=== PATIENT | female | born 1950 | race Caucasian/White ===

== ENCOUNTER 2016-04-16 09:10 | Observation (INO) | payer BC, MEDICARE ==
[2016-04-16] MEDS ORDERED: SODIUM CHLORIDE 0.9% 10 ML FLUSH FLUSH PRN (09:28)
[2016-04-16] MEDS ORDERED: ASPIRIN (CHEWABLE) 81 MG TAB PO ONE (09:28)
[2016-04-16] MEDS ORDERED: NITROGLYCERINE 2 % OINTMENT PACK TOP ONE (09:28)
--- NOTE | 2016-04-16 09:31 | EDPRACDOC ---
- General Information Information Source: Patient Mode of Arrival: Car - History of Present Illness Onset: YESTERDAY HPI: Pt c/o substernal chest pain with sob and nausea x 2 days. C/o non productive cough. Pt states she did receive bad news yesterday and thought it could be related to the news. Denies fever, earache, sore throat, congestion, abd pain, vomiting, changes in bowel or bladder, leg swelling, rash. Stress 10 yrs ago [facility]. Denies cath. Chest Pain Location: Reports: Substernal Pain Radiation: Reports: None Symptoms Occur: Reports: Gradually Cardiac Risk Factors: Reports: Hyperlipidemia, Hypertension Cardiac History of: Reports: Stress Test. Denies: Cardiac Cath PE Risk Factors: Reports: None Prehospital Care: Reports: ASA (81mg) Pain Came On: Reports: Gradually Pain Status: Present Now Pain Description: Reports: Tightness Pain Severity: Mild Pain Worsens With: Reports: Nothing Pain Improves With: Reports: Nothing Associated Signs and Symptoms: Reports: SOB, Nausea <Monse Benitez - Last Filed: 04/16/16 10:50> <Jasbir Goodman - Last Filed: 04/16/16 10:53> - General Information Chief Complaint: Chest Pain Stated Complaint: CHEST PAIN Time Seen by Provider: 04/16/16 09:22 Home Medications: Home Medications Aspirin (Enteric Coated) [Halfprin] 81 mg PO DAILY 06/03/14 Lisinopril 10 mg PO DAILY 06/03/14 Losartan Potassium 5 mg PO DAILY 06/03/14 [place]-3 Fatty Acids/Fish Oil [Fish Oil 1,000 mg Capsule] 2,400 mg PO DAILY 06/03 Rosuvastatin Calcium [Crestor] 5 mg PO DAILY 06/03/14 Vitamin E (Dl,Tocopheryl Acet) [Vitamin E] 1 mg PO DAILY 06/03/14 Estrogen,Con/M-Progest Acet [Prempro 0.3 mg-1.5 mg Tablet] 1 tab PO .SEE COMMENTS 04/16/16 Allergies/Adverse Reactions: Allergies Allergy/AdvReac Type Severity Reaction Status Date / Time No Known Allergies Allergy Verified 04/16/16 09:21 ED Past Medical History - History Reviewed Yes Nurses notes reviewed and agree except as marked - Patient Medical History Cardiac History: Reports: Hypertension, Hypercholesterolemia Systemic History: Denies: Cancer Surgical History: Reports: Cholecystectomy, Tonsillectomy/Adnoidectomy - Family Medical History Reports: Hypertension (mother), Diabetes (mother sister), Cancer (father), Cardiac Disorders (parents sister). Denies: Stroke - Social Medical History Smoking Status: Never smoker ETOH: None Substance Abuse: None <Monse Benitez - Last Filed: 04/16/16 10:50> EDM Review of Systems - Review of Systems Constitutional: No Symptoms Reported. negative: Fever, Chills, Weakness, Fatigue, Loss of Appetite Ears: No Symptoms Reported. negative: Pain, Hearing Loss, Drainage, Ear Pulling Throat: No Symptoms Reported. negative: Pain, Swelling Nose: No Symptoms Reported. negative: Congestion, Bleeding, Discharge, Injection, Swelling, Deformity, Ecchymosis, Tender, Abrasion, Laceration Mouth: No Symptoms Reported. negative: Pain, Drooling Respiratory: Cough, Shortness of Breath Cardiovascular: Chest Pain Gastrointestinal: Nausea Genitourinary: No Symptoms Reported. negative: Dysuria, Hematuria, Frequency, Discharge, Bleeding, Testicular Pain, Neurological: No Symptoms Reported. negative: Headache, Dizziness, Seizure, Numbness, Weakness, Speech Difficulty, Gait Difficulty Musculoskeletal: No Symptoms Reported. negative: Neck, Chestwall, Ribs, Back, Shoulder, Arm, Elbow, Forearm, Wrist, Hand, Pelvis, Hip, Femur, Knee, Leg, Ankle , Foot Integumentary: No Symptoms Reported. negative: Itching, Rash, Bruising, Wound Allergic/Immunologic: No Symptoms Reported. negative: Hives, Itching Hematologic: No Symptoms Reported. negative: Lymphadenopathy, Easy Bruising, Easy Bleeding Psychiatric: No Symptoms Reported. negative: Anxiety, Depression, Hallucinations, Insomnia, Suicidal <Monse Benitez - Last Filed: 04/16/16 10:50> - Physical Exam Constitutional: Alert Oriented to: Time, Person, Place Last recorded Vital Signs: Last Vital Signs Temp 98.6 F 04/16/16 09:17 Pulse 90 04/16/16 09:28 Resp 18 04/16/16 09:28 BP 184/78 H 04/16/16 09:28 Pulse Ox 95 04/16/16 09:28 Oxygen Pulse Oxygen Saturation 95 O2 Device Room Air Oxygen Flow Rate Fraction of Inspired Oxygen ( FIO2) - HEENT Head: Normal ( normocephalic) Eye Exam: Normal (PERRL, EOMI, Sclera white) Neck: Normal (FROM, trachea at midline) - Respiratory/Cardiovascular Respiratory: Normal - CTA (BBS clear to auscultation without adventitious sounds ) Cardiovascular: Normal (RRR without murmur, gallop or rub) - GI Auscultation: Normal (NABS) Palpation: Normal (Soft,No rebound or guarding, non distended) Tenderness: Non tender Delgado's Sign: Negative - Musculoskeletal Back: Normal (Non-Tender) Extremities: Normal (Normal tone, Pulses 2+ No cyanosis or edema, FROM) - Integumentary Skin: Normal, Warm, Dry Lymphatics: Normal (no adenopathy) - Neurologic Memory Impaired: Normal Motor Function: Normal (Normal tone, Pulses 2+ No cyanosis or edema, FROM) Mood Description: Normal Perception: Normal <Monse Benitez - Last Filed: 04/16/16 10:50> - Physical Exam Last recorded Vital Signs: Last Vital Signs Temp 98.6 F 04/16/16 09:17 Pulse 83 04/16/16 10:38 Resp 18 04/16/16 10:38 BP 143/62 04/16/16 10:38 Pulse Ox 93 04/16/16 10:38 Oxygen Pulse Oxygen Saturation 93 O2 Device Room Air Oxygen Flow Rate Fraction of Inspired Oxygen ( FIO2) <Jasbir Goodman - Last Filed: 04/16/16 10:53> ED Chest Pain Exam - Respiratory/Cardiovascular Respiratory: Normal - CTA (clear to auscultation without adventitious sounds) Cardiovascular/Chest: Normal (RRR without murmur, gallop or rub) Radial Pulse: Normal Edema: negative: 1+, 2+, 3+, 4+, 5, 6 Chest Palpation: Normal (No chest tenderness) <Monse Benitez - Last Filed: 04/16/16 10:50> - Differential Diagnosis Angina, CHF, Esophageal reflux/spasm, Myocardial infarction, Pneumonia - Action ASA given in the ED: Yes Patient received Beta Anitra within last 24hrs: No - Results 04/16/16 09:32 04/16/16 09:32 04/16/16 10:50 Laboratory Results - last 24 hr 04/16/16 04/16/16 04/16/16 09:32 09:32 09:32 WBC 8.9 RBC 4.56 Hgb 14.2 Hct 41.6 MCV 91 MCH 31.1 MCHC 34.2 RDW 12.8 Plt Count 363 MPV 7.4 Neut % (Auto) 65.7 Lymph % (Auto) 19.9 Major % (Auto) 8.6 Eos % (Auto) 5.0 Baso % (Auto) 0.8 Absolute Neuts (auto) 5.79 Absolute Lymphs (auto) 1.69 PT 10.4 INR 1.0 APTT 26.8 Sodium 141 Potassium 4.3 Chloride 102 Carbon Dioxide 26 Anion Gap 17 H BUN 18 H Creatinine 0.70 Estimated GFR (MDRD) > 60 Glucose 102 H Calculated Osmolality 273 Calcium 10.1 Total Bilirubin 0.8 AST 36 ALT 42 Alkaline Phosphatase 82 Troponin I < 0.01 Yuk-S-Fvkiurvrcdf Pept 37 Total Protein 8.4 H Albumin 5.0 - EKG EKG #1 EKG Time: 09:13 Rate: bpm: 91 [place]: Normal Rhythm: NSR Block: None ST: Normal - Diagnostic Imaging Chest Image interpreted by: Radiologist IMPRESSION: No acute abnormality. <Monse Benitez E - Last Filed: 04/16/16 10:50> - Results 04/16/16 09:32 04/16/16 09:32 WBC 8.9 xk/uL (3.8-10.8) 04/16/16 09:32 RBC 4.56 xM/uL (4.20-5.40) 04/16/16 09:32 Hgb 14.2 g/dL (12.0-16.0) 04/16/16 09:32 Hct 41.6 % (36-47) 04/16/16 09:32 MCV 91 fL (81-99) 04/16/16 09:32 MCH 31.1 pg (27-32) 04/16/16 09:32 MCHC 34.2 g/dl (33-36) 04/16/16 09:32 RDW 12.8 % (11.5-14.5) 04/16/16 09:32 Plt Count 363 xk/uL (130-400) 04/16/16 09:32 MPV 7.4 fL (7.4-10.4) 04/16/16 09:32 Neut % (Auto) 65.7 % (45-76) 04/16/16 09:32 Lymph % (Auto) 19.9 % (17-44) 04/16/16 09:32 Major % (Auto) 8.6 % (3-10) 04/16/16 09:32 Eos % (Auto) 5.0 % (0-5) 04/16/16 09:32 Baso % (Auto) 0.8 % (0-2) 04/16/16 09:32 Absolute Neuts (auto) 5.79 xk/uL (1.7-8.2) 04/16/16 09:32 Absolute Lymphs (auto) 1.69 xk/uL (0.65-4.75) 04/16/16 09:32 PT 10.4 SEC (9.2-11.2) 04/16/16 09:32 INR 1.0 04/16/16 09:32 APTT 26.8 SEC (22-35) 04/16/16 09:32 Sodium 141 mEq/L (137-146) 04/16/16 09:32 Potassium 4.3 mEq/L (3.5-5.1) 04/16/16 09:32 Chloride 102 mEq/L (98-107) 04/16/16 09:32 Carbon Dioxide 26 mMOL/L (22-33) 04/16/16 09:32 Anion Gap 17 mEq/L (8-16) H 04/16/16 09:32 BUN 18 MG/DL (7-17) H 04/16/16 09:32 Creatinine 0.70 MG/DL (0.52-1.04) 04/16/16 09:32 Estimated GFR (MDRD) > 60 mL/min (>=60) 04/16/16 09:32 Glucose 102 MG/DL (70-99) H 04/16/16 09:32 Calculated Osmolality 273 MOs/Kg (270-290) 04/16/16 09:32 Calcium 10.1 MG/DL (8.4-10.2) 04/16/16 09:32 Total Bilirubin 0.8 MG/DL (0.2-1.3) 04/16/16 09:32 AST 36 IU/L (14-36) 04/16/16 09:32 ALT 42 IU/L (9-52) 04/16/16 09:32 Alkaline Phosphatase 82 IU/L (55-165) 04/16/16 09:32 Troponin I < 0.01 ng/mL (<.04) 04/16/16 09:32 Bno-X-Pysuquwmnbj Pept 37 pg/mL (0-900) 04/16/16 09:32 Total Protein 8.4 G/DL (6.3-8.2) H 04/16/16 09:32 Albumin 5.0 G/DL (3.5-5.0) 04/16/16 09:32 Lab Results 04/16/16 04/16/16 04/16/16 09:32 09:32 09:32 WBC 8.9 RBC 4.56 Hgb 14.2 Hct 41.6 MCV 91 MCH 31.1 MCHC 34.2 RDW 12.8 Plt Count 363 MPV 7.4 Neut % (Auto) 65.7 Lymph % (Auto) 19.9 Major % (Auto) 8.6 Eos % (Auto) 5.0 Baso % (Auto) 0.8 Absolute Neuts (auto) 5.79 Absolute Lymphs (auto) 1.69 PT 10.4 INR 1.0 APTT 26.8 Sodium 141 Potassium 4.3 Chloride 102 Carbon Dioxide 26 Anion Gap 17 H BUN 18 H Creatinine 0.70 Estimated GFR (MDRD) > 60 Glucose 102 H Calculated Osmolality 273 Calcium 10.1 Total Bilirubin 0.8 AST 36 ALT 42 Alkaline Phosphatase 82 Troponin I < 0.01 Ldx-L-Faejdcvpvob Pept 37 Total Protein 8.4 H Albumin 5.0 Laboratory Results - last 24 hr 04/16/16 04/16/16 04/16/16 09:32 09:32 09:32 WBC 8.9 RBC 4.56 Hgb 14.2 Hct 41.6 MCV 91 MCH 31.1 MCHC 34.2 RDW 12.8 Plt Count 363 MPV 7.4 Neut % (Auto) 65.7 Lymph % (Auto) 19.9 Major % (Auto) 8.6 Eos % (Auto) 5.0 Baso % (Auto) 0.8 Absolute Neuts (auto) 5.79 Absolute Lymphs (auto) 1.69 PT 10.4 INR 1.0 APTT 26.8 Sodium 141 Potassium 4.3 Chloride 102 Carbon Dioxide 26 Anion Gap 17 H BUN 18 H Creatinine 0.70 Estimated GFR (MDRD) > 60 Glucose 102 H Calculated Osmolality 273 Calcium 10.1 Total Bilirubin 0.8 AST 36 ALT 42 Alkaline Phosphatase 82 Troponin I < 0.01 Spw-R-Ckzmhitpazq Pept 37 Total Protein 8.4 H Albumin 5.0 Laboratory Results 04/16/16 09:32 04/16/16 09:32 <Jasbir Goodman - Last Filed: 04/16/16 10:53> - Departure Disposition: Admit IP To This Hospital Education/Counseling Given To: Patient Education/Counseling Given Regarding: Diagnosis, Treatment <Monse Benitez - Last Filed: 04/16/16 10:50> - Departure Yes I personally saw and evaluated the patient. Decision to Admit Time: 10:53 Decision to admit date: 04/16/16 Decision to admit: from ED - Physician Consulted Hospitalist Time Called: 10:53 Provider Called: Reynold Soto Time Ladle Watcher Returned Call: 10:53 <Jasbir Goodman - Last Filed: 04/16/16 10:53> - Departure Condition: Stable Final Diagnosis: Chest pain Qualifiers: Chest pain type: unspecified Qualified Code(s): R07.9 - Chest pain, unspecified Instructions: Chest Pain (ED), Chest Wall Pain Referrals: Levi Mclena MD [Primary Care Provider] - One Week
[2016-04-16 09:42] LABS: AUTOMATED BASOPHIL 0.8 % (0-2); AUTOMATED LYMPH 19.9 % (17-44); AUTOMATED MONOCYTE 8.6 % (3-10); AUTOMATED NEUTROPHIL 65.7 % (45-76); MPV 7.4 fL (7.4-10.4)
[2016-04-16] MEDS: ASPIRIN (CHEWABLE) 81 MG TAB PO ONE ×2 (09:51→09:53)
--- NOTE | 2016-04-16 10:05 | DIRPT ---
CLINICAL DATA: Substernal chest pain and shortness of breath and nausea for the past 2 days. EXAM: PORTABLE CHEST 1 VIEW COMPARISON: 11/19/2012 FINDINGS: Normal sized heart. Clear lungs with normal vascularity. Minimal scoliosis. IMPRESSION: No acute abnormality. Electronically Signed By: Kaushal Myers M.D. On: 04/16/2016 10:02
[2016-04-16 10:06] LABS: PARTIAL THROMB. TIME 26.8 SEC (22-35)
[2016-04-16 10:07] LABS: BLOOD UREA NITROGEN 18 MG/DL (7-17); CALCIUM 10.1 MG/DL (8.4-10.2); CALCULATED OSMOLALITY 273 MOs/Kg (270-290); CHLORIDE 102 mEq/L (98-107); GLUCOSE 102 MG/DL (70-99); SODIUM LEVEL 141 mEq/L (137-146); TOTAL PROTEIN 8.4 G/DL (6.3-8.2)
[2016-04-16] MEDS ORDERED: NITROGLYCERINE 0.4 MG TAB SL PRN (11:06)
[2016-04-16] MEDS ORDERED: [UNRECOGNIZED DRUG - OTHER] PO SCH (11:15)
[2016-04-16] MEDS ORDERED: Pharmacy Order Set Alert SCH (12:00)
[2016-04-16] MEDS ORDERED: ACETAMINOPHEN 325 MG/TAB TABLET PO PRN (14:59)
[2016-04-16] MEDS ORDERED: Vaccine Screening Complete SCH (16:00)
[2016-04-16] MEDS ORDERED: ENOXAPARIN 40 MG/0.4 ML PFS SQ SCH (18:00)
--- NOTE | 2016-04-16 18:34 | HISTPHYS ---
- History of Present Illness Patient pleasant 65-year-old white female who went to see Dr. Hendrickson for her routine follow-up visit with a history of paroxysmal atrial fib. She described some retrosternal chest pressure starting yesterday when she received very stressful phone call at 9:30 a.m.. Today when she saw Dr. Hendrickson she described the chest discomfort that occurred again with emotional stress. He became worried that this might be a manifestation of coronary artery disease and sent her urgently to the emergency room for further evaluation. She indicated that she had a negative stress test and [place] 10 years ago. She did not have any shortness breath diaphoresis. She had no radiation of the pain no nausea vomiting. She has had a cholecystectomy in the past. According to her list medication she is not taking a proton pump inhibitor. Dr. Goodman then called me informing me of these occurrences. Patient has a history of atrial fib 8-10 years ago and was transient on medication that made her very fatigued which was switched to being taken on an as needed basis. Finally she had no recurrences of this and was taken off the medication. Unfortunately she cannot remember the name of it but by the description concerned that it might have been a beta julian. Anyway she tells me she is taking BUZZ-inhibitor and angiotensin receptor julian. I have taken liberty of advising her that I would like to switch the 2 medications lisinopril and losartan to 1 medicine valsartan HCT 160/25 daily. - Medical History Cardiac History: Reports: Hypertension, Hypercholesterolemia Respiratory History: Reports: No Significant History GI/ History: Reports: No Significant History Musculoskeletal History: Reports: No Significant History Systemic History: Reports: No Significant History Neurological History: Reports: No Significant History Psychological History: Reports: No Significant History - Surgical History Reports: Cholecystectomy (gallstone removal also), Tonsillectomy/Adnoidectomy - Medictions/Allergies Allergies No Known Allergies Allergy (Verified 04/16/16 09:21) Current Medication List: Reviewed Home Medications Aspirin (Enteric Coated) [Halfprin] 81 mg PO DAILY 06/03/14 Lisinopril 10 mg PO DAILY 06/03/14 Losartan Potassium 50 mg PO DAILY 06/03/14 [place]-3 Fatty Acids/Fish Oil [Fish Oil 1,000 mg Capsule] 2,400 mg PO DAILY 06/03 Rosuvastatin Calcium [Crestor] 5 mg PO DAILY 06/03/14 Vitamin E (Dl,Tocopheryl Acet) [Vitamin E] 1 mg PO DAILY 06/03/14 Estrogen,Con/M-Progest Acet [Prempro 0.3 mg-1.5 mg Tablet] 1 tab PO .SEE COMMENTS 04/16/16 - Family History Reports: Hypertension (mother), Diabetes (mother sister), Cancer (father), Cardiac Disorders (parents sister). Denies: Stroke - Social History Travel Outside of [place] in the Last 3 Months?: No Lives: with Spouse Smoking Status: Never smoker Social History: Reports: Alcohol Use. Denies: Substance Use Disorder - Review of Systems Constitutional: No Symptoms Reported (No Fever, chills, wt loss/gain, diaphoresis,fatigue/malaise.) Eyes: No Symptoms Reported (No blurry vision, visual changes, eye pain, or eye redness.) Ears: No Symptoms Reported (No ear pain or discharge) Nose: No Symptoms Reported (No nasal discharge/congestion or bleeding) Mouth: No Symptoms Reported (No oropharyngeal lesions or erythema) Throat/Neck: No Symptoms Reported (No throat pain or swelling.No oropharyngeal lesions or erythema.) Respiratory: Cough (Dry cough over the past 3 weeks). negative: Sputum Cardiovascular: Chest Pain (Described above associated with stress) Gastrointestinal: Nausea Genitourinary: No Symptoms Reported (No dysuria or hematuria.) Neurological: No Symptoms Reported (No headache, dizziness, seizures, or focal weakness.) Musculoskeletal:: No Symptoms Reported Integumentary: No Symptoms Reported (no rashes or lesions) Allergic/Immunologic: No Symptoms Reported (no rashes or lesions) Hematologic: No Symptoms Reported (No chronic anemia, bleeding, or easy bruising.), Other (Lymphatics- no lymph node swelling or pain.) Endocrine: No Symptoms Reported (No thyroid issues, polyuria, or polydipsia.) Psychiatric: Anxiety, Depression - Physical Exam Vital Signs: Initial Vitals Temperature 98.6 F 04/16/16 09:17 Pulse Rate 84 04/16/16 09:17 Respiratory Rate 20 04/16/16 09:17 Blood Pressure 151/68 04/16/16 09:17 Pulse Oxygen Saturation 98 04/16/16 09:17 Constitutional: Alert (Awake, Fully oriented. Normal and appropriate affect.Well appearing. Well nourished.), No apparent distress Oriented to: Time, Person, Place - HEENT Head: Normal (normocephalic, atraumatic.), Other (No cervical lymphadenopathy. No supraclavicular lymphadenopathy. Neck: No palpable mass, supple , trachea midline.) Eye: Normal (pupils equal, reactive to light, and round; EOMI, Sclera white) Oropharynx: Normal (Pharynx: Moist without exudate,Gums-no swelling, No oropharyngeal lesions or erythema, Mucous membranes are dry.) ENT EAC: Normal (No oropharyngeal lesions or erythema. Mucous membranes are dry. ) TMJ: Normal Nose: No Symptoms Reported (septum midline, Nares patent, without discharge or bleeding.) Respiratory: Normal - CTA (Clear to auscultation bilaterally. No wheezing, rales , rhonchi. Chest wall movements are symmetric. No use of accessory muscles to breathe.) Cardiovascular: Normal (RRR , Normal S1, S2. No murmurs, rubs, or gallops. PMI non-displaced. Carotids: no carotid bruits. No bradycardia or tachycardia. DP pulses 2+ bilaterally.) - GI Auscultation: Normal (normal active sounds) Palpation: Normal (Soft,non distended,nontender. No hepatosplenomegaly.) Tenderness: Non tender (No rebound or guarding) Delgado's Sign: Negative - Musculoskeletal Back: Normal (Non-Tender) Extremities: Normal (Normal tone, DP pulses 2+ bilaterally, No cyanosis or edema bilaterally, FROM bilaterally.) Spine: non-tender, normal alignment, normal inspection, abnormal alignment - Integumentary Skin: Normal (Clean, dry, and intact. No rashes. No lesions.) Lymphatics: Normal (No cervical lymphadenopathy. No supraclavicular lymphadenopathy.) - Neurologic Memory Impaired: Normal Motor Function: Normal (Motor 5/5 throughout.Normal tone, Pulses 2+ No cyanosis or edema, FROM) Cranial Nerve: Normal (CN II-XII intact sensation, strength 5/5) Cerebellar: Normal. negative: Ataxia, Past-Pointing, Tremor Mood Description: Normal (Fully oriented.), Anxious, Appropriate Thought: Coherent Perception: Normal - Focused CV Perfusion Exam Vital Signs: Last Vital Signs Temp 98.2 F 04/16/16 16:29 Pulse 84 04/16/16 17:49 Resp 17 04/16/16 16:29 BP 116/52 L 04/16/16 16:29 Pulse Ox 93 04/16/16 16:29 - Lab Results 04/16/16 09:32 04/16/16 09:32 Laboratory Results - last 24 hr 04/16/16 04/16/16 04/16/16 09:32 09:32 09:32 WBC 8.9 RBC 4.56 Hgb 14.2 Hct 41.6 MCV 91 MCH 31.1 MCHC 34.2 RDW 12.8 Plt Count 363 MPV 7.4 Neut % (Auto) 65.7 Lymph % (Auto) 19.9 [place] % (Auto) 8.6 Eos % (Auto) 5.0 Baso % (Auto) 0.8 Absolute Neuts (auto) 5.79 Absolute Lymphs (auto) 1.69 PT 10.4 INR 1.0 APTT 26.8 Sodium 141 Potassium 4.3 Chloride 102 Carbon Dioxide 26 Anion Gap 17 H BUN 18 H Creatinine 0.70 Estimated GFR (MDRD) > 60 Glucose 102 H Calculated Osmolality 273 Calcium 10.1 Total Bilirubin 0.8 AST 36 ALT 42 Alkaline Phosphatase 82 Troponin I < 0.01 Lqk-A-Mopuxlanlft Pept 37 Total Protein 8.4 H Albumin 5.0 04/16/16 04/16/16 12:00 15:55 WBC RBC Hgb Hct MCV MCH MCHC RDW Plt Count MPV Neut % (Auto) Lymph % (Auto) [place] % (Auto) Eos % (Auto) Baso % (Auto) Absolute Neuts (auto) Absolute Lymphs (auto) PT INR APTT Sodium Potassium Chloride Carbon Dioxide Anion Gap BUN Creatinine Estimated GFR (MDRD) Glucose Calculated Osmolality Calcium Total Bilirubin AST ALT Alkaline Phosphatase Troponin I < 0.01 < 0.01 Joq-T-Afrffvgjteu Pept Total Protein Albumin - Diagnostic Findings EKG shows sinus rhythm rate [address] T wave change. Chest x-ray shows normal size heart no acute infiltrate or consolidation no pneumothorax no pleural effusion. - Assessment (1) Hypertension I10 - ESSENTIAL (PRIMARY) HYPERTENSION Chronic Present on Admission: Yes Qualifiers: Hypertension type: essential hypertension Qualified Code(s): I10 - Essential (primary) hypertension Switch the lisinopril losartan to valsartan HCT 160/25 q.a.m. (2) Hypercholesterolemia E78.00 - PURE HYPERCHOLESTEROLEMIA, UNSPECIFIED Chronic Present on Admission: Yes Continue statin Crestor 5 mg a day. (3) Menopausal and perimenopausal disorder N95.9 - UNSPECIFIED MENOPAUSAL AND PERIMENOPAUSAL DISORDER Chronic Present on Admission: Yes Hold off estrogen. (4) Paroxysmal atrial fibrillation I48.0 - PAROXYSMAL ATRIAL FIBRILLATION Acute Present on Admission: Yes Apparently this is not been a problem over the past 10 years and patient is not on anticoagulant therapy other than aspirin. (5) Chest pain R07.9 - CHEST PAIN, UNSPECIFIED Acute Present on Admission: Yes Qualifiers: Chest pain type: unspecified Ischemic chest pain type: I Qualified Code(s ): R07.9 - Chest pain, unspecified Stress echo is ordered for tomorrow morning. She thinks she can get on a treadmill and walk fast. Case Care Discussed with: Patient, Nursing Staff, Resource Management Total Time: 53 minutes Critical Care: No Code: 10297
[2016-04-17 04:28] VITALS: BMI 28.4
[2016-04-17] MEDS ORDERED: OMEGA-3-ACID ETHYL ESTERS 1000 MG CAP PO SCH (09:00)
[2016-04-17] MEDS ORDERED: VALSARTAN 160 MG TAB PO SCH (09:00)
[2016-04-17] MEDS ORDERED: LISINOPRIL 10 MG TAB PO SCH (09:00)
[2016-04-17] MEDS ORDERED: HYDROCHLOROTHIAZIDE 25 MG TAB PO SCH (09:00)
[2016-04-17] MEDS ORDERED: LOSARTAN POTASSIUM 50 MG TAB PO SCH (09:00)
[2016-04-17] MEDS ORDERED: ROSUVASTATIN 10 MG TAB PO SCH (09:00)
[2016-04-17] MEDS ORDERED: Non-Formulary Medication ITEM (Rosuvastatin Calcium [Crestor] 5 MG) PO SCH (09:00)
[2016-04-17] MEDS: PERFLUTREN LIPID MICROSPHERE 1.5 ML VIAL IV ONE ×2 (10:06→11:16)
[2016-04-17 11:08] VITALS: BP 142/64; PULSE 89; TEMP 98.3
--- NOTE | 2016-04-17 11:55 | CAPUEKG ---
[place], [place] Test Date: 2016-04-16 Pat Name: MELODY WALKER Department: Room: 449 Gender: Female Engraver Letter: NAN SIFUENTESB: Requested By: Order Number: Reading MD: Misael Mcdonald MD Measurements Intervals [place] Rate: 74 P: 25 FL: 164 QRS: -17 QRSD: 92 T: 23 QT: 356 QTc: 395 Interpretive Statements Normal sinus rhythm Incomplete right bundle branch block Borderline ECG Electronically Signed On 04-17-16 11:54:37 EST by Misael Mcdonald MD <[id number]> [id number]
[2016-04-17] MEDS ORDERED: VITAMIN E 400 UNITS/CAP CAP PO SCH (12:00)
--- NOTE | 2016-04-17 14:04 | PCM.DCS92 ---
- Final/Secondary Discharge Diagnosis (1) Hypertension Chronic I10 - ESSENTIAL (PRIMARY) HYPERTENSION Present on Admission: Yes essential hypertension I10 - Essential (primary) hypertension Comment: Switch the lisinopril losartan to valsartan HCT 160/25 q.a.m. (2) Hypercholesterolemia Chronic E78.00 - PURE HYPERCHOLESTEROLEMIA, UNSPECIFIED Present on Admission: Yes Comment: Continue statin Crestor 5 mg a day. (3) Menopausal and perimenopausal disorder Chronic N95.9 - UNSPECIFIED MENOPAUSAL AND PERIMENOPAUSAL DISORDER Present on Admission: Yes Comment: Hold off estrogen. (4) Paroxysmal atrial fibrillation Acute I48.0 - PAROXYSMAL ATRIAL FIBRILLATION Present on Admission: Yes Comment: Apparently this is not been a problem over the past 10 years and patient is not on anticoagulant therapy other than aspirin. (5) Chest pain Acute R07.9 - CHEST PAIN, UNSPECIFIED Present on Admission: Yes unspecified I R07.9 - Chest pain, unspecified Comment: Stress echo is normal and reached 100% predicted maximal. Discharge Disposition: Home Discharge Condition: Good Cognitive Discharge Status: Unimpaired Fuctional Discharge Status: Independent Physician Follow up/Referrals: Levi Mclean MD [Primary Care Provider] - One Week Home Medications / New Prescriptions: New Valsartan/Hydrochlorothiazide [Diovan Hct 160-25 mg Tablet] 1 each PO DAILY # 30 tablet Continue Vitamin E (Dl,Tocopheryl Acet) [Vitamin E] 1 mg PO DAILY Aspirin (Enteric Coated) [Halfprin] 81 mg PO DAILY Rosuvastatin Calcium [Crestor] 5 mg PO DAILY [place]-3 Fatty Acids/Fish Oil [Fish Oil 1,000 mg Capsule] 2,400 mg PO DAILY Estrogen,Con/M-Progest Acet [Prempro 0.3 mg-1.5 mg Tablet] 1 tab PO .SEE COMMENTS Discontinued Losartan Potassium 50 mg PO DAILY Lisinopril 10 mg PO DAILY Discharge Home Medication List Aspirin (Enteric Coated) [Halfprin] 81 mg PO DAILY 06/03/14 [History Confirmed 04/16/16 Last Taken 04/15/16] [place]-3 Fatty Acids/Fish Oil [Fish Oil 1,000 mg Capsule] 2,400 mg PO DAILY 06/03 [History Confirmed 04/16/16 Last Taken 04/15/16] Rosuvastatin Calcium [Crestor] 5 mg PO DAILY 06/03/14 [History Confirmed Last Taken 04/15/16] Vitamin E (Dl,Tocopheryl Acet) [Vitamin E] 1 mg PO DAILY 06/03/14 [History Confirmed 04/16/16 Last Taken 04/15/16] Estrogen,Con/M-Progest Acet [Prempro 0.3 mg-1.5 mg Tablet] 1 tab PO .SEE COMMENTS 04/16/16 [History Confirmed 04/16/16 Last Taken 04/15/16] Valsartan/Hydrochlorothiazide [Diovan Hct 160-25 mg Tablet] 1 each PO DAILY #30 tablet 04/17/16 [Rx Last Taken Unknown] 04/16/16 09:32 04/17/16 04:40 Laboratory Results - last 24 hr 04/16/16 04/17/16 15:55 04:40 Glucose 109 H Troponin I < 0.01 Triglycerides 230 H Cholesterol 146 LDL Cholesterol, Calc 65.0 VLDL Cholesterol, Calc 46.0 H HDL Cholesterol 35.0 L Cholesterol/HDL Ratio 4.2 O2 Device: Room Air Diet at Discharge: Regular Activity: As Tolerated - DC Summary Notes Hospital Course Note:: Discharge summary on patient named MELODY WALKER admitted to [facility] on 04/16/16 by Reynold Soto MD. Date of discharge is 04/17/2016. Patient very pleasant 65-year-old white female who came in to the emergency room yesterday with a chief complaint of chest pain which had some exertional component to it. She did mention that she has been under excessive amount of stress with a particularly stressful phone call within the past day and attributes some of this to that. She also had exertional dyspnea within the past several days that concerned her. She came in the emergency room upon the urging of Dr. Hendrickson was seeing her for history of paroxysmal atrial fib not taking any anticoagulation other than aspirin. Upon being seen here she was placed in telemetry overnight having had negative troponins she had a negative stress echo reaching 100% predicted maximal heart rate. Happy to hear that she was ready go home. I happened to notice that she was taking Matthieu inhibitor and an Arb together. I recommended that we adjust her medication and switched her from that to the combination pill Diovan HCT 160/25. She tolerated this medication well overnight and anxious to go home she was discharged. CC: Dr. Mclean Total Time: 36 min Code: 36613 - Physical Exam Vital Signs: Last Vital Signs Temp 98.3 F 04/17/16 11:08 Pulse 89 04/17/16 11:08 Resp 18 04/17/16 11:08 BP 142/64 04/17/16 11:08 Pulse Ox 95 04/17/16 11:08 Oxygen Pulse Oxygen Saturation 95 O2 Device Room Air Oxygen Flow Rate Fraction of Inspired Oxygen ( FIO2) Constitutional: Alert (Awake, Fully oriented. Normal and appropriate affect.Well appearing. Well nourished.), No apparent distress Oriented to: Time, Person, Place - HEENT Head: Normal (normocephalic, atraumatic.), Other (No cervical lymphadenopathy. No supraclavicular lymphadenopathy. Neck: No palpable mass, supple , trachea midline.) Eye: Normal (pupils equal, reactive to light, and round; EOMI, Sclera white) Oropharynx: Normal (Pharynx: Moist without exudate,Gums-no swelling, No oropharyngeal lesions or erythema, Mucous membranes are dry.) ENT EAC: Normal (No oropharyngeal lesions or erythema. Mucous membranes are dry. ) TMJ: Normal Nose: No Symptoms Reported (septum midline, Nares patent, without discharge or bleeding.) - Respiratory/Cardiovascular Respiratory: Normal - CTA (Clear to auscultation bilaterally. No wheezing, rales , rhonchi. Chest wall movements are symmetric. No use of accessory muscles to breathe.) Cardiovascular: Normal (RRR , Normal S1, S2. No murmurs, rubs, or gallops. PMI non-displaced. Carotids: no carotid bruits. No bradycardia or tachycardia. DP pulses 2+ bilaterally.) - GI Auscultation: Normal (normal active sounds) Palpation: Normal (Soft,non distended,nontender. No hepatosplenomegaly.) Tenderness: Non tender (No rebound or guarding) Delgado's Sign: Negative - Musculoskeletal Back: Normal (Non-Tender) Extremities: Normal (Normal tone, DP pulses 2+ bilaterally, No cyanosis or edema bilaterally, FROM bilaterally.) - Integumentary Skin: Normal (Clean, dry, and intact. No rashes. No lesions.) Lymphatics: Normal (No cervical lymphadenopathy. No supraclavicular lymphadenopathy.) - Neurologic Memory Impaired: Normal Motor Function: Normal (Motor 5/5 throughout.Normal tone, Pulses 2+ No cyanosis or edema, FROM) Cranial Nerve: Normal (CN II-XII intact sensation, strength 5/5) Cerebellar: Normal. negative: Ataxia, Past-Pointing, Tremor Mood Description: Normal (Fully oriented.), Anxious, Appropriate Thought: Coherent Perception: Normal
--- NOTE | 2016-04-17 16:48 | CAPUECHO2 ---
INDICATION: EXERTIONAL CHEAST PAIN HEIGHT: 0.0 cm (0 ft 0.0 in) WEIGHT: 0.0 kg (0.0 lbs) BP: BSA: 0 m FINDINGS ------- Protocol:Utilizing the standard Yg protocol the patient was exercised for 6 minutes, 17 second s, achieving a maximum heart rate of 166 bpm , which is 107 % of predicted maximal heart rate. T here was physiologic heart rate and blood pressure response to exercise. Definty was used for end ocardial resolutiion. Heart rate and blood pressure:Max Heart Rate: 166 bpm % of Max Predicted Heart Rate: 107% Rest Hea rt Rate: 97 bpm Rest BP: 126/70 mmhg Max BP: 168/64 bpm Mets Achieved: 7.4 Target HR: 131 bpm Reason for stopping:The test was stopped because the target heart rate was achieved. Exercise tolerance:This level of exercise represents an average exercise tolerance for age. ELECTROCARDIOGRAM: Resting ECG:Sinus rhythm with extra systolic beats, non specific St T changes. Post exercise ECG:In response to stress, the ECG showed no diagnostic ST-T wave changes. Hemodynamic response:There were normal blood pressure and heart rate responses to stress. ECHOCARDIOGRAM: Resting echo findings:The left ventricle size is normal. There is normal global l eft ventricular contractility. Overall left ventricular systolic function is normal with, an EF be tween 60 - 65 %. Peak exercise echo findings:Echo images were acquired at peak stress which demonstrated appropriate augmentation of all left ventricular segments with slight decrease in cavity size. CONCLUSIONS 1. Average functional exercise capacity. No ECG or 2D echocardiographic evidence of inducible ische anant to achieved workload. Electronically Signed By: Misael Mcdonald MD -- Electronically Signed On: 16:48:24
== END 2016-04-17 15:24 | disposition home or self-care (01) ==
LOC: ED 09:10 → INTOOBSV 11:06 → EDINP 11:06 → PCU 12:49
PROVIDERS: ADMIT Internal Medicine; ATTEND Internal Medicine
DX: R07.9 Chest pain, unspecified (principal); I10 Essential (primary) hypertension; R11.0 Nausea; F43.8 Other reactions to severe stress; R06.02 Shortness of breath; E78.00 Pure hypercholesterolemia, unspecified; N95.9 Unspecified menopausal and perimenopausal disorder; I48.0 Paroxysmal atrial fibrillation; Z79.82 Long term (current) use of aspirin; Z79.899 Other long term (current) drug therapy
CPT/HCPCS: 36415; 71010; 80053; 80061; 82947; 83880; 84484; 85025; 85610; 85730; 93005; 93017; 93306; 96372; 99285; G0378; J1650; J3490; Q9957